=== PATIENT | female | born 1950 | race Caucasian/White ===

== ENCOUNTER 2022-11-25 09:21 | Outpatient (CLI) | payer MEDICARE | END 2022-11-25 23:59 | disposition home or self-care (01) | LOC: LAB 09:21 | PROVIDERS: ATTEND Dentist Oral and Maxillofacial Surgery | DX: Z01.812 Encounter for preprocedural laboratory examination (principal); Z20.822 Contact with and (suspected) exposure to COVID-19 | CPT/HCPCS: U0003; C9803 ==

== ENCOUNTER 2022-11-29 11:55 | Outpatient (CLI) | payer MEDICARE ==
[2022-11-29 13:15] LABS: BASOPHILS % (AUTO) 0.2 % (0.0-2.0); BILIRUBIN,URINE NEGATIVE (NEGATIVE); COLOR,URINE YELLOW (YELLOW); EOSINOPHILS % (AUTO) 1.8 % (0.0-6.0); HEMATOCRIT 44 % (33-45); HEMOGLOBIN 14.2 g/dL (11.5-14.8); LEUKOCYTE ESTERASE ,URINE NEGATIVE (NEGATIVE); LYMPHOCYTES # (AUTO) 2.1 K/uL (0.8-4.8); LYMPHOCYTES % (AUTO) 34.1 % (20.0-44.0); MEAN CORPUSCULAR HGB CONC 33 g/dl (31.0-36.0); MEAN CORPUSCULAR VOLUME 96 fL (82-100); MONOCYTES # (AUTO) 0.5 K/uL (0.1-1.30); MONOCYTES % (AUTO) 8.1 % (2.0-12.0); NEUTROPHILS # (AUTO) 3.5 K/uL (1.8-8.9); NEUTROPHILS % (AUTO) 55.8 % (43.0-81.0); NITRITE, URINE NEGATIVE (NEGATIVE); PLATELET COUNT (AUTO) 317 K/uL (150-450); PROTEIN,URINE NEGATIVE (NEGATIVE); RED BLOOD CELL COUNT(AUTO) 4.56 MIL/uL (4.0-5.2); UGLUCOSE NEGATIVE (NEGATIVE); UROBILINOGEN,URINE 0.2 EU/dL (0.2); WHITE BLOOD COUNT (AUTO) 6.2 K/uL (4.3-11.0)
[2022-11-29 13:46] LABS: CALCIUM, SERUM 9.6 mg/dL (8.5-10.1); CREATININE 0.7 mg/dL (0.6-1.3); POTASSIUM 4.3 mmol/L (3.5-5.1)
== END 2022-11-29 23:59 | disposition home or self-care (01) ==
LOC: LAB 11:55
PROVIDERS: ATTEND Internal Medicine Pulmonary Disease
DX: Z01.818 Encounter for other preprocedural examination (principal)
CPT/HCPCS: 36415; 71045-TC; 80048-TC; 85025-TC; 85610-TC; 85730-TC

== ENCOUNTER 2022-12-02 10:40 | Inpatient (IN) | payer MEDICARE ==
[~2022-12-02] VITALS: Ht 154.9 cm; Wt 74.8 kg
[2022-12-02] MEDS ORDERED: FENTANYL PF 100MCG/2ML AMPUL ONE (12:37)
[2022-12-02] MEDS ORDERED: KETAMINE HCL (500MG/10ML) 50 MG/ML VIAL ONE (12:37)
[2022-12-02] MEDS ORDERED: OXYMETAZOLINE HCL NASAL SPRAY 30 ML BOTTLE NS ONE (12:38)
[2022-12-02] MEDS ORDERED: LIDOCAINE 0.5% HCL 50 ML VIAL ONE (12:38)
[2022-12-02] MEDS ORDERED: FAMOTIDINE/PF INJ 20 MG/2 ML VIAL IV ONE (12:38)
[2022-12-02] MEDS ORDERED: ROCURONIUM BROMIDE 50 MG/5 ML ONE (12:39)
[2022-12-02] MEDS ORDERED: LIDOCAINE 2%-EPI 1:100,000 30 ML VIAL ONE (12:45)
[2022-12-02] MEDS ORDERED: VANCOMYCIN 1 GM VIAL ONE (12:45)
[2022-12-02] MEDS ORDERED: DEXAMETHASONE SOD PHOSPHATE 10 MG/ML VIAL ONE (12:45)
[2022-12-02] MEDS ORDERED: Magnesium 1 GM/2 ML VIAL ONE (12:56)
[2022-12-02] MEDS ORDERED: LABETALOL HCL IV 100MG VIAL ONE (13:28)
[2022-12-02] MEDS ORDERED: GLYCOPYRROLATE 0.2 MG/ML VIAL ONE (13:40)
--- NOTE | 2022-12-02 14:00 | NUR ---
ms rn patient just came in from [place], s/p maxillary surgey by dr. thakur, alert,oriented x4,not in any form of distress, respirations even and unlabored,no sob noted, on room air w/ adequate saturation, denies pain at this time, no s/s of active bleeding at this time, repositioned for comfort, oedre done by [facility] quality control lab tech, started on clear liquids, tolerated well, will monitor patient.
[2022-12-02] MEDS ORDERED: IV NS 0.9% 1,000 ML IV PRN (14:30)
[2022-12-02] MEDS ORDERED: HYDROMORPHONE 1 MG/1 ML DISP.SYRIN IV PRN (14:30)
[2022-12-02] MEDS ORDERED: ACETAMINOPHEN 325 MG TABLET PO PRN ×2 (14:30→17:30)
[2022-12-02] MEDS ORDERED: ONDANSETRON HCL/PF 4 MG/2 ML VIAL IVP PRN ×2 (14:30→17:30)
[2022-12-02 15:40] VITALS: BP 147/86
[2022-12-02 16:00] VITALS: BP 132/75
[2022-12-02 17:00] VITALS: BP 141/82
[2022-12-02] MEDS ORDERED: Z GUARD REMEDY 4 OZ OINT TP PRN (17:30)
[2022-12-02] MEDS ORDERED: MAG HYDROX/AL HYDROX/SIMETH 30 ML UDC PO PRN (17:30)
[2022-12-02] MEDS ORDERED: MAGNESIUM HYDROXIDE 30 ML UDC PO PRN (17:30)
[2022-12-02] MEDS ORDERED: ZOLPIDEM TARTRATE 5 MG TABLET PO PRN (17:30)
--- NOTE | 2022-12-02 18:43 | NUR ---
ms mcmullen on bed, d/c plan in at.
--- NOTE | 2022-12-02 19:30 | NUR ---
noc rn opening received patient in bed, a/ox4. no s/s of apparent distress in room air. denies pain at this time. patient s/p oral/maxilla surgery, suction set up at bed side. per patient she is tolerating clear liquid diet, with no n/v. no drooling noted. patient encouraged with the use of call light. safety in place-- bed in lowest, locked position, call light within reach, side rails up 2. will continue with plan of care for patient.
--- NOTE | 2022-12-02 19:31 | NUR ---
ms rn on bed, all needs attended, texted daryl benton for change of pain meds.
[2022-12-02 20:00] VITALS: BP 141/69
--- NOTE | 2022-12-02 20:18 | NUR ---
noc rn note Per Hospitalist Chi Martines, Pharmacist to put new order in for pain medication for severe pain.
[2022-12-02] MEDS ORDERED: TRAMADOL HCL 50 MG TABLET PO PRN (20:30)
--- NOTE | 2022-12-02 22:33 | NUR ---
noc rn note patient requested for Tylenol 650 mg for mild pain. Given as ordered PRN. patient given snacks, will monitor.
--- NOTE | 2022-12-02 23:14 | NUR ---
noc rn note patient IV NS PRN non-admin, patient eats and drink fluids.
[2022-12-03 06:02] LABS: HEMATOCRIT 39 % (33-45); HEMOGLOBIN 12.8 g/dL (11.5-14.8); LYMPHOCYTES % (AUTO) 9.1 % (20.0-44.0); MEAN CORPUSCULAR HGB CONC 33 g/dl (31.0-36.0); MEAN CORPUSCULAR VOLUME 95 fL (82-100); MONOCYTES # (AUTO) 0.3 K/uL (0.1-1.30); MONOCYTES % (AUTO) 2.9 % (2.0-12.0); NEUTROPHILS # (AUTO) 9.5 K/uL (1.8-8.9); PLATELET COUNT (AUTO) 317 K/uL (150-450); RED BLOOD CELL COUNT(AUTO) 4.07 MIL/uL (4.0-5.2); WHITE BLOOD COUNT (AUTO) 10.8 K/uL (4.3-11.0)
[2022-12-03 06:18] LABS: CALCIUM, SERUM 9.5 mg/dL (8.5-10.1); CREATININE 0.7 mg/dL (0.6-1.3); MAGNESIUM 2.5 mg/dL (1.8-2.4); POTASSIUM 4.1 mmol/L (3.5-5.1)
[2022-12-03 07:00] VITALS: BP 137/67
--- NOTE | 2022-12-03 07:06 | NUR ---
MS RN OPENING NOTE RECEIVED PATIENT AWAKE IN BED, A/Ox4 ABLE TO MAKE NEEDS KNOWN. ON ROOM AIR NO S/S OF RESPIRATORY DISTRESS OR DISCOMFORT. IV ACCESS L FA #[id number] S/L. INTACT AND PATENT. PATIENT CONTINENT HAS BRP. AMBULATORY WITH STAND BY ASSIST. PATIENT HAS NO C/O OF PAIN OR DISCOMFORT. SAFETY MEASURES IN PLACE: BED LOCKED AND IN LOWEST POSITION, HOB ELEVATED, CALL LIGHT WITHIN REACH, SIDE RAILS UPx2. WILL CONTINUE TO MONITOR.
--- NOTE | 2022-12-03 07:30 | NUR ---
noc rn closing needs attended. no distress noted, no bleeding s/p surgery. Report given to Lianne morning shift RN for continuity of patient care.
--- NOTE | 2022-12-03 11:28 | NUR ---
ENGINEERING COORDINATOR NOTE PATIENT D/C HOME, A/Ox4, ABLE TO MAKE NEEDS KNOWN. STABLE ON ROOM AIR, NO S/S OF RESPIRATORY DISTRESS. PATIENT IV ACCESS REMOVED, ID BAND REMOVED. PATIENT FORMS ALL SIGNED AND FILED INTO CHART. SKIN INTACT. ALL BELONGINGS WITH PATIENT. PATIENT LEFT UNIT WITH ACCOMPANIED BY CY ASHBY @[id number]. CHARGE NURSE AND MD AWARE OF DISCHARGE.
== END 2022-12-03 14:29 | disposition home or self-care (01) | DRG 478 ==
LOC: DS 10:40 → MED 10:41
PROVIDERS: ADMIT Dentist Oral and Maxillofacial Surgery; ATTEND Nurse Practitioner Acute Care
PROC: 0CU Mouth and Throat, Supplement (ICD-10-PCS; principal; 2022-12-02)
PROC: 0NPW0JZ Removal of Synthetic Substitute from Facial Bone, Open Approach (ICD-10-PCS; 2022-12-02)
PROC: 0NB Head and Facial Bones, Excision (ICD-10-PCS; 2022-12-02)
PROC: 0NPW04Z Removal of Internal Fixation Device from Facial Bone, Open Approach (ICD-10-PCS; 2022-12-02)
PROC: 0NS Head and Facial Bones, Reposition (ICD-10-PCS; 2022-12-02)
DX: T84.318A Breakdown (mechanical) of other bone devices, implants and grafts, initial encounter (principal); M84.48XA Pathological fracture, other site, initial encounter for fracture; M86.68 Other chronic osteomyelitis, other site; T84.228A Displacement of internal fixation device of other bones, initial encounter; E03.9 Hypothyroidism, unspecified; E78.5 Hyperlipidemia, unspecified; I10 Essential (primary) hypertension; E66.9 Obesity, unspecified; Z68.31 Body mass index [BMI] 31.0-31.9, adult; D16.4 Benign neoplasm of bones of skull and face
CPT/HCPCS: 36415; 71045-TC; 80048-TC; 83735-TC; 84100-TC; 84443-TC; 85025-TC; 85610-TC; 85730-TC; 86850-TC; 87081-TC; G0378; J1100; J1885; J2405; J2704; J2765; J3010; J3370; J3475; J3490; J7030